=== PATIENT | female | born 1970 | race Caucasian/White ===

== ENCOUNTER 2024-07-01 11:50 | Emergency (ER) | payer OTHER ==
[~2024-07-01] VITALS: Ht 162.6 cm; Wt 120.0 kg
[2024-07-01] MEDS ORDERED: TOPROL XL100 MG PO (12:14)
[2024-07-01] MEDS ORDERED: LISINOPRIL10 MG PO (12:40)
[2024-07-01] MEDS ORDERED: HYDROCHLOROTH12.5 M2 PO (12:40)
[2024-07-01] MEDS ORDERED: LEVOTHYROXINE125 MCG PO (12:40)
[2024-07-01] MEDS ORDERED: MELOXICAM15 MG PO (12:41)
[2024-07-01] MEDS ORDERED: ASPIRIN E.C. 8181 MG PO (12:42)
[2024-07-01] MEDS ORDERED: SIMVASTATIN20 M1 PO (12:42)
[2024-07-01] MEDS ORDERED: PEPCID 20MG TAB20 MG PO (12:42)
[2024-07-01] MEDS ORDERED: MULTIVITAMIN1 EACH PO (12:43)
[2024-07-01] MEDS ORDERED: CRANBERRY200 MG (12:43)
[2024-07-01] MEDS ORDERED: PHARMASSURE MA500 MG PO (12:43)
[2024-07-01] MEDS ORDERED: VITAMIN D310 MC1 PO (12:44)
[2024-07-01] MEDS ORDERED: PREDNISONE20 M1 PO (13:56)
[2024-07-01] MEDS ORDERED: AZITHROMYCIN 250MGPK PO (13:56)
[2024-07-01] MEDS ORDERED: CODEINE-GUAIFE120 ML PO (13:56)
[2024-07-01 14:11] VITALS: BP 112/76
== END 2024-07-01 14:14 | disposition home or self-care (01) ==
LOC: ED 11:50
DX: J40 Bronchitis, not specified as acute or chronic (principal)